=== PATIENT | female | born 1960 | race African-American/Black ===

== ENCOUNTER → 2016-08-01 | Day surgery (SDC) | payer BC ==
[~2016-08-01] VITALS: Ht 181.6 cm; Wt 127.0 kg
[2016-08-01] VITALS (10 sets, daily range): BP systolic 99–126; BP diastolic 55–78
[~2016-08-01] MED LIST: ASPIRIN81 MG ORAL; BIOTIN2500 MCG PO; Bupivacaine 0.25% Inj 30ml INJ ONE; Bupivacaine w/Epi 0.25% 30ml Vial INJ ONE; COREG6.25 MG ORAL; EPINEPHrine 1mg/1ml Amp ONE; HYDROmorphone 1mg/ml Carpuject SUBQ PRN; Hydromorphone 0.5mg/0.5ml inj IVP PRN; LEVOTHYROXINE125 MCG ORAL; LISINOPRIL20 MG ORAL; LR 1000ml 1,000 ML IV SCH; LR 1000ml 1,000 ML IVLG SCH; LR 1000ml ONE; METFORMIN HCL500 M1 ORAL; Midazolam 2mg/2ml Inj ONE; Morphine Sulfate 2mg/ml Inj IVP PRN; NS Irrig 4000ml IRRIG ONE; Norco 5mg/325mg tab ORAL PRN; Propofol 10mg/ml 20ml IV ONE; Sterile Water Irrig 1000ml IRRIG ONE; VITAMIN B COMP1 EAC2 ORAL; VITAMIN B125000 MCG PO; Vancomycin 1gm inj IVPB ONE; fentaNYL 100 mcg/2 mL IV ONE
--- NOTE | 2016-08-01 06:54 | Pre-Procedure Note/Attestation ---
Pre-Procedure Note/Attestation Complete Prior to Procedure Planned Procedure: right Procedure Narrative: Right knee arthroscopy with partial menisectomy Indications for Procedure Pre-Operative Diagnosis: Right knee meniscus tear Attestation I attest that I discussed the nature of the procedure; its benefits; risks and complications; and alternatives (and the risks and benefits of such alternatives ), prior to the procedure, with the patient (or the patient's legal security representative). I attest that, if there was a reasonable possibility of needing a blood transfusion, the patient (or the patient's legal security representative) was given the [facility] standardized written summary, pursuant to the [place] Blood Safety Act ([place] Health and Safety Code # 1645, as amended). I attest that I re-evaluated the patient just prior to the surgery and that there has been no change in the patient's H&P, except as documented below: LIZETTE MALAVE Aug 01, 2016 06:54
--- NOTE | 2016-08-01 08:28 | Anethesia Preoperative Eval ---
Anesthesia Pre-op PMH/ROS General Date of Evaluation: Aug 01, 2016 Time of Evaluation: 07:40 Anesthesiologist: Flako ASA Score: ASA 3 Mallampati Score Class I : Soft palate, uvula, fauces, pillars visible Class II: Soft palate, uvula, fauces visible Class III: Soft palate, base of uvula visible Class IV: Only hard plate visible Mallampati Classification: Class II Surgeon: Philip Diagnosis: Meniscus tear Surgical Procedure: Right knee arthroscopy, meniscectomy Allergies: Coded Allergies: CORINNA INHIBITORS (Verified Allergy, Severe, Buccal edema, 07/31/16) CHOCOLATE FLAVOR (Verified Allergy, Severe, Anaphylaxis , 07/31/16) IODINE (Verified Allergy, Severe, Anaphylaxis, 07/31/16) NUT - UNSPECIFIED (Verified Allergy, Severe, anaphylaxis, 07/31/16) PENICILLINS (Verified Allergy, Severe, Anaphylaxis, 07/31/16) SHELLFISH DERIVED (Verified Allergy, Severe, Anaphylaxis, 07/31/16) SULFA (SULFONAMIDE ANTIBIOTICS) (Verified Allergy, Severe, Anaphylaxis , ) LATEX (Verified Allergy, Intermediate, Rash, 07/31/16) ACETAMINOPHEN (Verified Adverse Reaction, Intermediate, Hallucinations, 07/31/16) HYDROCODONE (Verified Adverse Reaction, Intermediate, Hallucinations, ) Medications: see eMAR Past Medical History Cardiovascular: Reports: HTN Pulmonary: Reports: asthma Gastrointestinal/Genitourinary: Reports: GERD Endocrine: Reports: DM, hypothyroidism Musculoskeletal/Integumentary: Reports: OA Other: obesity PMH Narrative: HTN, DM, asthma, hypothyroid, obesity PSxH Narrative: C/S, DWAYNE, T&A Anesthesia Pre-op Phys. Exam Physician Exam Last Vital Signs Date Time Temp Pulse Resp B/P Pulse Ox O2 Delivery O2 Flow Rate FiO2 08/01/16 06:19 97.7 75 20 126/78 100 Room Air Constitutional: NAD Neurologic: CN 2-12 intact Cardiovascular: RRR, no M/R/G Respiratory: CTA Airway Exam Mallampati Score: Class II MO: full ROM: full Teeth: missing Anesthesia Pre-op A/P Labs WNL Risk Assessment & Plan Assessment: Meniscus tear Plan: GA, LMA Status Change Before Surgery: No Pre-Antibiotics Drug: Vanco Given Within 1 Hr of Incision: Yes Time Given: 07:55 RADHA OWENS M.D. Aug 01, 2016 08:28
--- NOTE | 2016-08-01 08:35 | Immediate Post-Op Evaluation ---
Immediate Post-Op Evalulation Immediate Post-Op Evalulation Procedure: Right knee scope, meniscecomy Date of Evaluation: Aug 01, 2016 Time of Evaluation: 08:50 IV Fluids: 450 Blood Pressure Systolic: 108 Blood Pressure Diastolic: 67 Pulse Rate: 78 Respiratory Rate: 13 O2 Sat by Pulse Oximetry: 100 Temperature (Fahrenheit): 98.3 Pain Score (1-10): 0 Nausea: No Vomiting: No Complications No complication Patient Status: awake, patent, none Hydration Status: adequate Drug: Vanco Given Within 1 Hr of Incision: Yes Time Given: 07:55 RADHA OWENS M.D. Aug 01, 2016 08:35
--- NOTE | 2016-08-01 08:38 | Brief Operative Note ---
Immediate Post Operative Note Operative Note Pre-op Diagnosis: Right knee meniscus tear Procedure: Right knee arthroscopy with partial menisectomy and chondroplasty Post-op Diagnosis: same as pre-op Findings: consistent w/pre-op dx studies Surgeon: Philip Anesthesiologist: Monica Anesthesia: general Specimen: none Complications: none Condition: stable Estimated Blood Loss: none Drains: none Implant(s) used?: No LIZETTE MALAVE Aug 01, 2016 08:38
--- NOTE | 2016-08-01 08:46 | 48 Hour Post Anesthesia Eval ---
Post Anesthesia Evaluation Procedure: Right knee scope, meniscecomy Date of Evaluation: Aug 01, 2016 Time of Evaluation: 09:15 Blood Pressure Systolic: 115 0: 73 Pulse Rate: 74 Respiratory Rate: 15 Temperature (Fahrenheit): 98 O2 Sat by Pulse Oximetry: 98 Airway: patent Nausea: No Vomiting: No Pain Intensity: 0 Hydration Status: adequate Cardiopulmonary Status: Stable Mental Status/LOC: patient returned to baseline Follow-up Care/Observations: As per surgery Post-Anesthesia Complications: No anesthetic complication Follow-up care needed: N/A RADHA OWENS M.D. Aug 01, 2016 08:46
--- NOTE | 2016-08-01 11:47 | Operative Note - Dictated ---
DATE: 08/01/2016 SURGEON: Jeffrey Palacios M.D. ([facility] [place]) MODEL SET ARTIST: None. ANESTHESIA: General sedation plus local. COMPLICATIONS: None. ANTIBIOTICS: Vancomycin. PREOPERATIVE DIAGNOSES: Right knee: 1. Patellar femoral chondrosis. 2. Medial compartment chondrosis. 3. Lateral compartment chondrosis. 4. Macerated complex posterior horn medial meniscus tear. POSTOPERATIVE DIAGNOSES: Right knee: 1. Patellar femoral chondrosis. 2. Medial compartment chondrosis. 3. Lateral compartment chondrosis. 4. Macerated complex posterior horn medial meniscus tear. PROCEDURE PERFORMED: Right knee arthroscopy with: 1. Patellofemoral chondroplasty. 2. Lateral femoral condyle chondroplasty. 3. Medial femoral condyle chondroplasty. 4. Partial medial meniscectomy. BACKGROUND: The patient has long-standing right knee pain refractory to all nonoperative management. All risks, benefits, and alternatives to surgical intervention were discussed in great detail. Risks included, but were not limited to, bleeding, infection, neurovascular injury, need for additional surgical intervention, failure of pain relief, arthrofibrosis, complications of anesthesia, blood clots, stroke, heart attack, and potentially . She understood these risks, amongst others, and consent was signed. PROCEDURE IN DETAIL: The patient was brought into the operating room and placed supine on the operating table. The right knee was correctly verified for surgical site and prepped and draped in standard sterile fashion. Exam under anesthesia revealed symmetric range of motion of the contralateral side, no effusion, and no laxity. ANTEROLATERAL AND ANTEROMEDIAL PORTALS WERE MARKED AND INJECTED WITH 20 ML OF 0.25% MARCAINE WITH EPINEPHRINE. A DIAGNOSTIC ARTHROSCOPY WAS THEN UNDERTAKEN. IT REVEALED THE FOLLOWIN. Normal suprapatellar pouch. 2. Grade 2 chondrosis of the trochlea. 3. Normal medial gutter. 4. Osteophytes lateral gutter. 5. Grade 2 chondrosis with small chondral flap lateral femoral condyle. 6. Normal anterior cruciate ligament 7. Normal posterior cruciate ligament. 8. Wide complex macerated tear posterior horn, medial meniscus. 9. Grade 3 diffuse medial femoral condyle chondrosis with loose edges. On the trochlea, lateral femoral condyle, and medial femoral condyle, a 4.5 mm shaver was used to perform a chondroplasty of the chondral changes. The flaps were present were smoothed to a stable border and tested with a probe. Attention was then turned to the medial meniscus. Using an up biter, left biter, right biter, and 4.5 mm shaver, the posterior horn macerated complex tear was resected to a stable border. It was tested with a probe. All fluid and debris were evacuated from the knee. A 10 mL of 0.25% Marcaine with epinephrine were injected. The wounds were copiously irrigated and reapproximated using 4-0 Monocryl in subcuticular fashion. Steri-Strips were used over Mastisol. A dry sterile dressing was applied and an Hugo wrap. No complications. She was transferred to recovery in good condition. I attest that I performed the entire operation. Jeffrey Palacios M.D. (CSM) DR: Bethany JOB#: [id number] CC:
== END | disposition home or self-care (01) ==
LOC: SUR 05:45
DX: M23.221 Derangement of posterior horn of medial meniscus due to old tear or injury, right knee (principal); I10 Essential (primary) hypertension; J45.909 Unspecified asthma, uncomplicated; K21.9 Gastro-esophageal reflux disease without esophagitis; E11.9 Type 2 diabetes mellitus without complications; E03.9 Hypothyroidism, unspecified; M19.90 Unspecified osteoarthritis, unspecified site; E66.9 Obesity, unspecified; Z90.710 Acquired absence of both cervix and uterus; M94.8X6 Other specified disorders of cartilage, lower leg
CPT/HCPCS: 29881; 82962; 97161; J0171; J2250; J2405; J2704; J3010; J3370; J7120; 94003; 94150